=== PATIENT | female | born 1995 | race Caucasian/White ===

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

== ENCOUNTER 2017-10-28 01:15 | Emergency (ER) | payer BC, OTHER ==
[2017-10-28 01:24] VITALS: BP 96/51; BMI 18.6
--- NOTE | 2017-10-28 01:31 | DR.GENAD ---
HPI - PCP Primary Care Physician: nfd - Complaint/Symptoms Chief Complaint Doctors Comments: History as stated. Tongue piercing anteriorally with silver bar Chief Complaint:: "i got my tongue pierced yesterday and i think they may have hit a nerve. i have been throwing up ever since. i have had diarrhea too. i have tried taking it out but have been unsuccessful." - Source History Provided: Patient - Mode of Arrival Mode of Arrival: Ambulatory - Timing Onset of Chief Complaint: 10/27/17 PMH - PMH Past Medical History: No Past Surgical History: No Surgical History: Ortho Surgery - Family History History of Family Medical Conditions: No Family Medical History: Cancer - Social History Type of Tobacco Use: Cigarettes Alcohol Use: None Do you use any recreational Drugs:: No Lives Where: Home - infectious screening Have you traveled outside the country in the last 6 months?: No Isolation: Standard ROS - Review of Systems Constitutional: No Symptoms Reported Eyes: No Symptoms Reported ENTM: No Symptoms Reported, Mouth Pain (tongue piercing with silver bar) Respiratoy: No Symptoms Reported Cardiovascular: No Symptoms Reported Gastrointestinal/Abdominal: No Symptoms Reported Genitourinary: No Symptoms Reported Neurological: No Symptoms Reported Musculoskeletal: No Symptoms Reported Integumentary: No Symptoms Reported Hematologic/Lymphatic: No Symptoms Reported Endocrine: No Symptoms Reported Psychiatric: No Symptoms Reported All Other Systems: Reviewed and Negative PE - Vital Signs Vitals: Temperature 98.3 F Pulse Rate 76 Respiratory Rate 16 Blood Pressure 96/51 O2 Sat by Pulse Oximetry 100 - General General Appearance: Alert, In No Apparent Distress - Head Head Exam: Normal Inspection, Atraumatic - Eyes Eye exam: Normal Appearance, EOMI - ENT ENT Exam: Normal Exam External Ear Exam: Normal External Inspection TM/Canal Exam: Bilateral Normal Nose Exam: Normal Nose Exam Mouth Exam: Other (Tongue piercing of anterior portion with silver bar) Throat Exam: Normal Inspection - Neck Neck Exam: Normal Inspection - Chest Chest Inspection: Normal Inspection - Respiratory Respiratory Exam: Normal Lung Sounds Bilat Respiratory Exam: Bilateral Clear to Auscultation - Cardiovascular Cardiovascular Exam: Regular Rate, Normal Rhythm - Abdominal Exam Abdominal Exam: Normal Inspection, Normal Bowel Sounds Abdominal Tenderness: negative: RUQ, RLQ, LUQ, LLQ, Epigastrium, Suprapubic, Diffuse, Mild, Moderate, Severe, Other - Extremities Extremities Exam: Normal Inspection, Full ROM - Back Back Exam: Normal Inspection, Full ROM - Neurologic Neurological Exam: Alert, Oriented X3, CN II-XII Intact - Psychiatric Psychiatric Exam: Normal Affect - Skin Skin Exam: Warm, Dry, Intact Course - Treatment Treatment: Removed bar by unscrewing right end retainer - Reevaluation 1st: Improved - Diagnosis Discharge Problem: Foreign body of tongue Qualifiers: Encounter type: initial encounter Qualified Code(s): S00.552A - Superficial foreign body of oral cavity, initial encounter - Discharge Plan Condition: Stable - Follow ups/Referrals Follow ups/Referrals: NFD,None [Primary Care Provider] - 3 days - Instructions
== END 2017-10-28 01:38 | disposition home or self-care (01) ==
LOC: ER 01:15
DX: S00.552A Superficial foreign body of oral cavity, initial encounter (principal); T18.0XXA Foreign body in mouth, initial encounter
CPT/HCPCS: 99281